=== PATIENT | female | born 1970 | race Caucasian/White ===

== ENCOUNTER 2016-08-01 12:20 | Emergency (ER) | payer OTHER ==
[2016-08-01 12:22] VITALS: BMI 37.8
[2016-08-01 12:32] VITALS: RESP 18; TEMP 98.7
[2016-08-01 14:18] LABS: BASO # 0.1 K/uL (0.0-0.2); BASO % 0.7 % (0.0-2.0); EOS # 0.2 K/uL (0.0-0.7); EOS % 1.8 % (0.0-4.0); HEMATOCRIT 41.8 % (34.0-47.0); LYMPH # 2.6 K/uL (1.0-4.3); LYMPH % 22.5 % (20.0-40.0); MEAN CELL VOLUME 84.7 fl (81.0-99.0); MEAN CORPUSCULAR HEMOGLOBIN 27.5 pg (27.0-31.0); MEAN CORPUSCULAR HGB CONC 32.5 g/dL (33.0-37.0); MEAN PLATELET VOLUME 6.9 fl (7.2-11.7); MONO # 0.5 K/uL (0.0-0.8); MONO % 4.4 % (0.0-10.0); NEUT # 8.2 K/uL (1.8-7.0); NEUT % 70.6 % (50.0-75.0); NRBC % 0.1 % (0.0-0.0); WHITE BLOOD COUNT 11.6 K/uL (4.8-10.8)
[2016-08-01 14:27] LABS: ALB/GLOB RATIO 1.2 (1.0-2.1); ALKALINE PHOSPHATASE 124 U/L (38-126); ALT/SGPT 43 U/L (9-52); AST/SGOT 18 U/L (14-36); BILIRUBIN,TOTAL 0.7 mg/dl (0.2-1.3); BLOOD UREA NITROGEN 14 mg/dl (7-17); CALCIUM 9.3 mg/dL (8.4-10.2); CARBON DIOXIDE 29 mmol/L (22-30); CHLORIDE 101 mmol/L (98-107); GFR AFRICAN-AMERICAN > 60; GLUCOSE,RANDOM 129 mg/dL (65-105); POTASSIUM 3.9 MMOL/L (3.6-5.0); SODIUM 139 mmol/l (132-148); TOTAL PROTEIN 7.2 G/DL (6.3-8.2)
--- NOTE | 2016-08-01 16:02 | US ---
Pelvic ultrasound History: Hematuria. Comparison: None. Technique: Trans abdominal and transvaginal sonogram of the pelvis. Findings: Patient is status post hysterectomy and right oophorectomy. No definite pelvic abnormality imaged. Left ovary measures 2.8 x 2.6 x 2.4 centimeter. Cyst versus prominent follicles known within the left ovary. Doppler flow noted. No significant free fluid in the cul-de-sac. Impression: No acute abnormality identified.
--- NOTE | 2016-08-01 16:04 | US ---
PROCEDURE: Ultrasound of the Kidneys HISTORY: hematuria, pelvic pain COMPARISON: None available. TECHNIQUE: Sonogram of the kidneys. FINDINGS: RIGHT KIDNEY: Measures: 12.4 x 6 x 5.4 cm. Normal in size, contour and echogenicity. Mild fullness of the renal collecting system. No radiopaque calculus. LEFT KIDNEY: Measures: 11.4 x 6.4 x 6.4 cm. Normal in size, contour and echogenicity. No stone, solid mass lesion or hydronephrosis visualized. OTHER FINDINGS: Bilateral ureteral jets seen. IMPRESSION: Mild fullness of the right renal collecting system. No radiopaque calculus identified. Bilateral ureteral jets seen.
[2016-08-01 16:10] LABS: RBC URINE 20 /hpf (0-3); URINE BACTERIA RARE (<OCC); URINE BILIRUBIN NEGATIVE (NEGATIVE); URINE BLOOD MODERATE (NEGATIVE); URINE CALCIUM OXALATE CRYSTALS FEW /hpf (<OCC); URINE COLOR YELLOW (YELLOW); URINE GLUCOSE (UA) NEG (Normal); URINE KETONE NEGATIVE (NEGATIVE); URINE LEUKOCYTE ESTERASE SMALL Leu/uL (Negative); URINE PROTEIN 30 mg/dL (NEGATIVE); URINE UROBILINOGEN 0.2-1.0 mg/dL (0.2-1.0); WBC URINE 6 /hpf (0-5)
--- NOTE | 2016-08-01 16:47 | ED PDOC ---
HPI: Female Pain Time Seen by Provider: 08/01/16 12:33 Chief Complaint (Nursing): Female Genitourinary Chief Complaint (Provider): Right sided pelvic pain, urinary urgency History Per: Patient History/Exam Limitations: no limitations Onset/Duration Of Symptoms: Days Current Symptoms Are (Timing): Still Present Additional Complaint(s): PT states she was diagnosed with UTI will in the hospital 2 weeks ago. Pt states she continued to have pelvic pain and right sided pain. Pt states she was seen by her TOOLS DEVELOPER who told her she had blood in her urine and UTI still present. TOOLS DEVELOPER gave her Keflex for UTI, did pap smear and vaginal cultures. PT states she also sent her for US and CT of the abdomen which she has not completed yet. Past Medical History Reviewed: Historical Data, Nursing Documentation, Vital Signs Vital Signs: Last Vital Signs Temp 98.7 F 08/01/16 12:27 Pulse 97 H 08/01/16 12:27 Resp 18 08/01/16 12:27 BP 145/71 08/01/16 12:27 Pulse Ox 99 08/01/16 12:27 - Medical History PMH: Arthritis (CLAUS. IN LEGS BILATERALLY), Asthma - Surgical History Surgical History: No Surg Hx - Family History Family History: States: Unknown Family Hx - Living Arrangements Living Arrangements: With Family - Social History Current smoker - smoking cessation education provided: No - Home Medications Home Medications: Ambulatory Orders Medication Instructions Recorded Budesonide/Formoterol Fumarate 1 dose IH PRN PRN 06/20/16 [Symbicort 160-4.5 Mcg Inhaler] Fluticasone Furoate [Arnuity 200 mcg IH PRN PRN 06/20/16 Ellipta] Steroid Cream For Arthritis 1 dose TP DAILY 06/20/16 Rosuvastatin Calcium [Crestor] 5 mg PO HS #30 tab 07/09/16 Cephalexin [Keflex] 500 mg PO BID #10 capsule 07/11/16 Ketorolac Tromethamine [Toradol] 10 mg PO Q8H #10 tab 08/01/16 Tamsulosin [Flomax] 0.4 mg PO DAILY #10 cap 08/01/16 - Allergies Allergies/Adverse Reactions: Allergies Allergy/AdvReac Type Severity Reaction Status Date / Time antibiotics AdvReac Intermediate "I ALWAYS Uncoded 06/20/16 11:00 GET A YEAST INECTION FOM ANY ANTIBIOTIC." Review of Systems ROS Statement: Except As Marked, All Systems Reviewed And Found Negative Genitourinary Female: Positive for: Frequency, Hematuria, Pelvic Pain Physical Exam - Reviewed Nursing Documentation Reviewed: Yes Vital Signs Reviewed: Yes - Physical Exam Appears: Positive for: Well, Non-toxic, No Acute Distress Head Exam: Positive for: ATRAUMATIC, NORMAL INSPECTION, NORMOCEPHALIC Skin: Positive for: Normal Color, Warm, DRY Eye Exam: Positive for: Normal appearance ENT: Positive for: Normal ENT Inspection Neck: Positive for: Normal, Painless ROM Cardiovascular/Chest: Positive for: Regular Rate, Rhythm Respiratory: Positive for: Normal Breath Sounds. Negative for: Accessory Muscle Use Gastrointestinal/Abdominal: Positive for: Bowel Sounds, Soft. Negative for: Tenderness Back: Positive for: Normal Inspection Extremity: Positive for: Normal ROM Neurologic/Psych: Positive for: Alert, Oriented - Laboratory Results Result Diagrams: 08/01/16 14:00 08/01/16 14:00 - ECG O2 Sat by Pulse Oximetry: 99 Pulse Ox Interpretation: Normal Medical Decision Making Medical Decision Making: (+) 5 cm stone, right sided renal Results discussed with patient and f/u with urologist. Disposition - Clinical Impression Clinical Impression: Kidney stone - Patient ED Disposition Is Patient to be Admitted: No Counseled Patient/Family Regarding: Diagnosis, Need For Followup, Rx Given - Disposition Referrals: Siddhartha Light Jr., MD [Staff Provider] - Disposition: Routine/Home Disposition Time: 16:46 Condition: GOOD Additional Instructions: Continue antibiotic you are currently taking (keflex). Follow-up with urologist. Prescriptions: Ketorolac Tromethamine [Toradol] 10 mg PO Q8H #10 tab Tamsulosin [Flomax] 0.4 mg PO DAILY #10 cap Instructions: Kidney Stones (ED)
--- NOTE | 2016-08-01 16:55 | CT ---
PROCEDURE: CT Abdomen and Pelvis without contrast. HISTORY: Pelvic pain, hematuria COMPARISON: None. TECHNIQUE: Contiguous axial images of the abdomen and pelvis. No oral or IV contrast given. Coronal and Sagittal reformats generated. Please note that due to lack of intravenous and oral contrast, evaluation of soft tissue structures and bowel is limited. Radiation dose: Total exam DLP = 1048.12 mGy-cm. This CT exam was performed using one or more of the following dose reduction techniques: Automated exposure control, adjustment of the mA and/or kV according to patient size, and/or use of iterative reconstruction technique. FINDINGS: LOWER THORAX: Unremarkable. LIVER: Unremarkable. No gross lesion or ductal dilatation. GALLBLADDER AND BILE DUCTS: Unremarkable. PANCREAS: Unremarkable. No mass. No ductal dilatation. SPLEEN: Unremarkable. No splenomegaly. ADRENALS: Unremarkable. KIDNEYS AND URETERS: Right perinephric stranding and mild to moderate hydronephrosis. 5 millimeter stone in the right ureteral vesicular junction. Underlying infection cannot be excluded. Punctate radiopaque calculus in the lower pole of the left kidney without evidence of hydronephrosis or hydroureter. BLADDER: Grossly unremarkable. REPRODUCTIVE: Please note that evaluation of gynecologic organs is not optimal on CT imaging. Calcifications seen in the left adnexa likely within the ovary. Sub centimeters cystic lesion in the left adnexa measuring 1.1 centimeter. This was seen in the recent ultrasound. APPENDIX: Unremarkable. BOWEL: Limited evaluation given lack of oral contrast. No obstruction. PERITONEUM: Unremarkable. No fluid collection. No free air. LYMPH NODES: Unremarkable. No enlarged lymph nodes. VASCULATURE: Unremarkable. No aortic aneurysm. BONES: No fracture or destructive lesion. OTHER FINDINGS: None. IMPRESSION: 5 millimeter radiopaque calculus in the right ureterovesicular junction with mild hydroureteronephrosis. Mild right-sided perinephric stranding. Underlying infection should be excluded clinically. Other findings as above. Discussed with CHRISTOPHER Brooks at approximately 4:45 p.m. on 08/01/2016.
[2016-08-01 17:05] VITALS: BP 118/68; PULSE 78; O2SAT 100
== END 2016-08-01 17:05 | disposition home or self-care (01) ==
LOC: H.ER 12:20
DX: N20.0 Calculus of kidney (principal); R10.2 Pelvic and perineal pain; R31.9 Hematuria, unspecified; J45.909 Unspecified asthma, uncomplicated

== ENCOUNTER 2017-08-12 22:07 | Emergency (ER) | payer OTHER ==
[2017-08-12 22:08] VITALS: BMI 39.3
[2017-08-12 22:16] VITALS: BP 123/77; PULSE 83; RESP 18; TEMP 98.2; O2SAT 100
--- NOTE | 2017-08-12 22:39 | ED PDOC ---
HPI: Skin/Bite Injury Time Seen by Provider: 08/12/17 22:32 Chief Complaint (Nursing): Fever Chief Complaint (Provider): Lyme Disease History Per: Patient History/Exam Limitations: no limitations Onset/Duration Of Symptoms: Days (60) Current Symptoms Are (Timing): Still Present Quality Of Symptoms: Painful Severity: Mild Additional Complaint(s): Pt presents to the ED with a mild headache after having been diagnosed with lyme disease on July 03 but receiving no treatment for the disease. Pt denies a stiff neck, menigeal signs but does complain of overall bodyaches, but she is uncertain whether this is related to her diagnosis of rheumatoid arthitis. Past Medical History Reviewed: Historical Data, Nursing Documentation, Vital Signs Vital Signs: Last Vital Signs Temp 98.2 F 08/12/17 22:13 Pulse 83 08/12/17 22:13 Resp 18 08/12/17 22:13 BP 123/77 08/12/17 22:13 Pulse Ox 100 08/13/17 00:55 - Medical History PMH: Anxiety, Arthritis (CLAUS. IN LEGS BILATERALLY; HANDS), Asthma, Bronchitis, Depression, Rheumatoid Arthritis, Sleep Apnea Denies: Colonic Polyps, Chronic Kidney Disease, Seizures, TIA - Surgical History Surgical History: Endoscopy - Family History Family History: States: Unknown Family Hx - Home Medications Home Medications: Ambulatory Orders Medication Instructions Recorded Budesonide/Formoterol Fumarate 2 puff IH PRN PRN 06/20/16 [Symbicort 160-4.5 Mcg Inhaler] Metoclopramide HCl [Reglan] 10 mg PO TID 01/17/17 Omeprazole 40 mg PO DAILY 01/17/17 Sucralfate [Carafate] 1 gm PO BID 01/17/17 Azithromycin 250 mg PO BID 06/20/17 Doxycycline Monohydrate 100 mg PO BID #42 tablet 08/13/17 - Allergies Allergies/Adverse Reactions: Allergies Allergy/AdvReac Type Severity Reaction Status Date / Time antibiotics AdvReac Intermediate "I ALWAYS Uncoded 06/20/16 11:00 GET A YEAST INECTION FOM ANY ANTIBIOTIC." Review of Systems ROS Statement: Except As Marked, All Systems Reviewed And Found Negative Review Of Systems: ROS cannot be obtained secondary to pt's inabilty to answer questions. Constitutional: Negative for: Fever, Chills, Sweats Eyes: Negative for: Pain ENT: Negative for: Ear Pain Cardiovascular: Negative for: Chest Pain Respiratory: Negative for: Cough Musculoskeletal: Negative for: Neck Pain, Shoulder Pain, Back Pain Skin: Negative for: Rash Neurological: Positive for: Headache Physical Exam - Reviewed Nursing Documentation Reviewed: Yes Vital Signs Reviewed: Yes - Physical Exam Appears: Positive for: Well, Non-toxic, No Acute Distress Head Exam: Positive for: ATRAUMATIC, NORMAL INSPECTION, NORMOCEPHALIC Skin: Positive for: Normal Color, Warm, Dry Eye Exam: Positive for: Normal appearance Neck: Positive for: Normal, Painless ROM, Supple. Negative for: Decreased ROM, Pain On Movement Of Neck Cardiovascular/Chest: Positive for: Regular Rate, Rhythm, Chest Non Tender. Negative for: Bradycardia, Tachycardia Respiratory: Positive for: Normal Breath Sounds. 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
[2017-08-12] MEDS ORDERED: Tdap Vaccine 0.5 ml Vial (10-64 yrs) IM ONE ×2 (22:42→22:58)
[2017-08-12] MEDS ORDERED: cefTRIAXone (Rocephin) 250 mg Inj IVPB STA (22:42)
[2017-08-12] MEDS ORDERED: DiphenhydrAMINE 50 mg/ml Inj IVP STA (22:42)
[2017-08-12] MEDS ORDERED: cefTRIAXone 2 GM in Sodium Chloride 0.9% 100 ML IVPB STA (22:46)
[2017-08-12] MEDS ORDERED: DiphenhydrAMINE 50 mg/ml Inj ONE (22:57)
[2017-08-12 23:24] LABS: BASO # 0.1 K/uL (0.0-0.2); BASO % 0.8 % (0.0-2.0); EOS # 0.3 K/uL (0.0-0.7); EOS % 2.6 % (0.0-4.0); HEMOGLOBIN 12.9 g/dL (12.0-16.0); LYMPH % 25.8 % (20.0-40.0); MEAN CELL VOLUME 82.2 fl (81.0-99.0); MEAN CORPUSCULAR HEMOGLOBIN 27.2 pg (27.0-31.0); MEAN CORPUSCULAR HGB CONC 33.1 g/dL (33.0-37.0); MEAN PLATELET VOLUME 7.5 fl (7.2-11.7); MONO # 0.6 K/uL (0.0-0.8); MONO % 5.2 % (0.0-10.0); NEUT # 7.6 K/uL (1.8-7.0); NEUT % 65.6 % (50.0-75.0); NRBC % 0.2 % (0.0-0.0); RBC 4.74 Mil/uL (3.80-5.20); RED CELL DISTRIBUTION WIDTH 13.8 % (11.5-14.5); WHITE BLOOD COUNT 11.6 K/uL (4.8-10.8)
[2017-08-12 23:33] LABS: ALB/GLOB RATIO 1.1 (1.0-2.1); ALBUMIN 3.9 g/dL (3.5-5.0); ALT/SGPT 33 U/L (9-52); AST/SGOT 24 U/L (14-36); BLOOD UREA NITROGEN 17 mg/dl (7-17); CALCIUM 8.6 mg/dL (8.4-10.2); GFR AFRICAN-AMERICAN > 60; GFR NON-AFRICAN AMERICAN > 60
[2017-08-13 00:07] LABS: SQUAMOUS EPITHIAL 4 /hpf (0-5); URINE BACTERIA OCC (<OCC); URINE BILIRUBIN NEGATIVE (NEGATIVE); URINE BLOOD NEGATIVE (NEGATIVE); URINE CLARITY CLOUDY (Clear); URINE COLOR YELLOW (YELLOW); URINE GLUCOSE (UA) NEG (Normal); URINE LEUKOCYTE ESTERASE TRACE Leu/uL (Negative); URINE PROTEIN NEGATIVE (NEGATIVE)
== END 2017-08-13 00:58 | disposition home or self-care (01) ==
LOC: H.ER 22:07
DX: A69.20 Lyme disease, unspecified (principal); Z86.59 Personal history of other mental and behavioral disorders; J45.909 Unspecified asthma, uncomplicated; M06.9 Rheumatoid arthritis, unspecified; Z23 Encounter for immunization
CPT/HCPCS: 80053; 81003; 81025; 85025; 86618; 90471; 90715; 96374; 99283; J0696; J1200

== ENCOUNTER 2017-11-02 07:58 | Emergency (ER) | payer MEDICAID, OTHER ==
[2017-11-02 08:06] VITALS: BP 132/84; PULSE 78; RESP 22; O2SAT 97; BMI 40.6
[2017-11-02 08:27] VITALS: TEMP 97
[2017-11-02] MEDS ORDERED: Sodium Chloride 0.9% 1,000 ML IV STA (08:37)
[2017-11-02 08:54] LABS: BASO # 0.1 K/uL (0.0-0.2); BASO % 1.1 % (0.0-2.0); EOS # 0.3 K/uL (0.0-0.7); HEMOGLOBIN 13.4 g/dL (12.0-16.0); LYMPH # 2.8 K/uL (1.0-4.3); LYMPH % 31.9 % (20.0-40.0); MEAN CELL VOLUME 82.1 fl (81.0-99.0); MEAN CORPUSCULAR HEMOGLOBIN 27.1 pg (27.0-31.0); MEAN PLATELET VOLUME 7.4 fl (7.2-11.7); MONO # 0.5 K/uL (0.0-0.8); MONO % 5.9 % (0.0-10.0); NEUT # 5.1 K/uL (1.8-7.0); NEUT % 58.1 % (50.0-75.0); NRBC % 0.1 % (0.0-0.0); RBC 4.95 Mil/uL (3.80-5.20); RED CELL DISTRIBUTION WIDTH 13.6 % (11.5-14.5); WHITE BLOOD COUNT 8.8 K/uL (4.8-10.8)
[2017-11-02 09:17] LABS: ALB/GLOB RATIO 1.3 (1.0-2.1); ALBUMIN 4.2 g/dL (3.5-5.0); ALT/SGPT 41 U/L (9-52); AST/SGOT 27 U/L (14-36); BLOOD UREA NITROGEN 16 mg/dl (7-17); CALCIUM 9.1 mg/dL (8.4-10.2); GFR NON-AFRICAN AMERICAN > 60
--- NOTE | 2017-11-02 09:32 | ED PDOC ---
HPI: General Adult Time Seen by Provider: 11/02/17 08:11 Chief Complaint (Nursing): Weakness/Neurological Deficit Chief Complaint (Provider): headache, weakness History Per: Patient History/Exam Limitations: no limitations Onset/Duration Of Symptoms: Days (x2 weeks) Current Symptoms Are (Timing): Still Present Additional Complaint(s): Julieta Butts is a 46 year old female, with a past medical history of Lyme disease, Lupus, asthma and questionable blood pressure issues, who presents to the emergency department for evaluation of migraine headaches onset for months associated with nausea and an episode of vomiting last night. She also reports a fever, Tmax of 102, one time last night. Patient was diagnosed with Lyme disease and Lupus, she got full treatment which she finished. Patient was supposed to see Dr. Clements yesterday because her medications were not helping but couldn't make it. She has been getting migraines since finishing treatment which describes as frontal and same as usual migraines. She tried motrin but with no improvement. Patient reports back spasms, tingling and burning sensation in legs but no numbness in arms or face, ongoing for x2 weeks. She also reports generalized weakness and cough with her asthma but denies any recent travel, hormone treatment, diarrhea, abdominal pain, urinary symptoms, chills, congestion, runny nose, chest pain, shortness of breath, neck pain, dizziness or other medical complaints. PMD: Jaden Hodges Past Medical History Reviewed: Historical Data, Nursing Documentation, Vital Signs Vital Signs: Last Vital Signs Temp 97.0 F L 11/02/17 08:13 Pulse 78 11/02/17 08:13 Resp 22 11/02/17 08:13 BP 132/84 11/02/17 08:13 Pulse Ox 97 11/02/17 10:55 - Medical History PMH: Anxiety, Arthritis (CLAUS. IN LEGS BILATERALLY; HANDS), Asthma, Bronchitis, Depression, HTN, Rheumatoid Arthritis, Sleep Apnea Denies: Colonic Polyps, Chronic Kidney Disease, Seizures, TIA Other PMH: Lupus, Lyme disease - Surgical History Surgical History: Endoscopy - Family History Family History: States: Unknown Family Hx - Social History Current smoker - smoking cessation education provided: No Alcohol: Social Drugs: Denies - Home Medications Home Medications: Ambulatory Orders Medication Instructions Recorded RX: Budesonide/Formoterol Fumarate 2 puff IH PRN PRN 06/20/16 [Symbicort 160-4.5 Mcg Inhaler] Metoclopramide HCl [Reglan] 10 mg PO TID 01/17/17 RX: Omeprazole 40 mg PO DAILY 01/17/17 Sucralfate [Carafate] 1 gm PO BID 01/17/17 RX: Azithromycin 250 mg PO BID 06/20/17 RX: Doxycycline Monohydrate 100 mg PO BID #42 tablet 08/13/17 RX: Doxycycline Monohydrate 100 mg PO BID 14 Days tablet 11/02/17 - Allergies Allergies/Adverse Reactions: Allergies Allergy/AdvReac Type Severity Reaction Status Date / Time antibiotics AdvReac Intermediate "I ALWAYS Uncoded 06/20/16 11:00 GET A YEAST INECTION FOM ANY ANTIBIOTIC." Review of Systems ROS Statement: Except As Marked, All Systems Reviewed And Found Negative Constitutional: Positive for: Fever, Weakness (generalized). Negative for: Chills ENT: Negative for: Nose Congestion Cardiovascular: Negative for: Chest Pain Respiratory: Positive for: Cough. Negative for: Shortness of Breath Gastrointestinal: Positive for: Nausea, Vomiting. Negative for: Abdominal Pain , Diarrhea Genitourinary Female: Negative for: Dysuria Musculoskeletal: Positive for: Back Pain. Negative for: Neck Pain Neurological: Positive for: Headache, Other (tingling and burning sensation in legs). Negative for: Weakness, Numbness, Dizziness Physical Exam - Reviewed Nursing Documentation Reviewed: Yes Vital Signs Reviewed: Yes - Physical Exam Appears: Positive for: No Acute Distress Head Exam: Positive for: ATRAUMATIC, NORMAL INSPECTION, NORMOCEPHALIC Skin: Positive for: Normal Color, Warm, Dry Eye Exam: Positive for: Normal appearance, EOMI, PERRL ENT: Positive for: Normal ENT Inspection Neck: Positive for: Painless ROM, Supple Cardiovascular/Chest: Positive for: Regular Rate, Rhythm. Negative for: Murmur Respiratory: Positive for: Normal Breath Sounds. Negative for: Respiratory Distress Gastrointestinal/Abdominal: Positive for: Normal Exam, Soft. Negative for: Tenderness, Guarding, Rebound Back: Positive for: Normal Inspection, Other (Straight leg test negative). Negative for: L CVA Tenderness, R CVA Tenderness, Vertebral Tenderness Extremity: Positive for: Normal ROM (upper and lower extremities). 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 Negative for: Motor/Sensory Deficits, Aphasia, Facial Droop - Laboratory Results Result Diagrams: 11/02/17 08:41 11/02/17 08:41 Interpretation Of Abn Labs: 2.2 phos - ECG ECG: Positive for: Interpreted By Me, Viewed By Me ECG Rhythm: Positive for: Normal QRS, Normal ST Segment, Sinus Rhythm O2 Sat by Pulse Oximetry: 97 (RA) Pulse Ox Interpretation: Normal - CT Scan/US ct Other Rad Studies (CT/US): Read By Radiologist Other Rad Interpretation: 4.8 mm probable meningioma versus dural based calcification - Progress ED Course And Treament: 1033: Stable. Spoke with Dr. German who is covering Dr. Clements. Wants pt. to be started on doxy for 2 weeks and fu with him. AAOx3. Ambulated with no issues. Tolerated po. Medical Decision Making Medical Decision Making: Time: 08:11 Initial Impression: migraine headache Initial Plan: --Head w/o contrast [CT] --EKG --CMP --Magnesium --Phosphorus --Troponin I --Urine --Reglan 10 mg IV --Sodium Chloride 1,000 ml IV 1,000 mls/hr --Reevaluation 10:[address] FINDINGS: HEMORRHAGE: No intracranial hemorrhage. BRAIN: No mass effect or edema. 4.8 mm probable meningioma versus dural based calcification involving the right frontal convexity (series 4, image 29). Lara- white matter differentiation appears intact. Please note that MRI with diffusion imaging is more sensitive in the detection of acute ischemic event. VENTRICLES: No hydrocephalus. CALVARIUM: Unremarkable. PARANASAL SINUSES: Unremarkable as visualized. No significant inflammatory changes. MASTOID AIR CELLS: Unremarkable as visualized. No inflammatory changes. OTHER FINDINGS: None. IMPRESSION: 4.8 mm probable meningioma versus dural based calcification involving the right frontal convexity. No acute intracranial pathology identified. ----- Scribe Attestation: Documented by Jamie Fu, acting as a scribe for Terrell Chatterjee MD. Provider Scribe Attestation: All medical record entries made by the Scribe were at my direction and personally dictated by me. I have reviewed the chart and agree that the record accurately reflects my personal performance of the history, physical exam, medical decision making, and the department course for this patient. I have also personally directed, reviewed, and agree with the discharge instructions and disposition. Disposition - Clinical Impression Clinical Impression: Weakness, Headache, Hypophosphatemia - Patient ED Disposition Is Patient to be Admitted: No Counseled Patient/Family Regarding: Studies Performed, Diagnosis, Need For Followup, Rx Given - Disposition Referrals: [facility] [Outside] - 11/03/17 Disposition: Routine/Home Disposition Time: 10:35 Condition: STABLE Additional Instructions: Return if not better 3 days. Prescriptions: RX: Doxycycline Monohydrate 100 mg PO BID 14 Days tablet Instructions: Headache, Adult, Weakness (ED) Forms: [employer] ([place]), [facility] ED School/Work Excuse
--- NOTE | 2017-11-02 10:12 | CT ---
Date of service: 11/02/2017 PROCEDURE: CT HEAD WITHOUT CONTRAST. HISTORY: headache COMPARISON: None available. TECHNIQUE: Axial computed tomography images were obtained through the head/brain without intravenous contrast. Radiation dose: Total exam DLP = 845.69 mGy-cm. This CT exam was performed using one or more of the following dose reduction techniques: Automated exposure control, adjustment of the mA and/or kV according to patient size, and/or use of iterative reconstruction technique. FINDINGS: HEMORRHAGE: No intracranial hemorrhage. BRAIN: No mass effect or edema. 4.8 mm probable meningioma versus dural based calcification involving the right frontal convexity (series 4, image 29). Lara-white matter differentiation appears intact. Please note that MRI with diffusion imaging is more sensitive in the detection of acute ischemic event. VENTRICLES: No hydrocephalus. CALVARIUM: Unremarkable. PARANASAL SINUSES: Unremarkable as visualized. No significant inflammatory changes. MASTOID AIR CELLS: Unremarkable as visualized. No inflammatory changes. OTHER FINDINGS: None. IMPRESSION: 4.8 mm probable meningioma versus dural based calcification involving the right frontal convexity. No acute intracranial pathology identified.
[2017-11-02] MEDS ORDERED: Potassium & Sodium Phosphate PO STA (10:32)
--- NOTE | 2017-11-02 11:15 | CARD ---
APPROVED REPORT Date of service: 11/02/2017 EKG Measurement Heart [id number] <Conclusion> Normal sinus rhythm prolonged QT abnormal ECG
== END 2017-11-02 11:18 | disposition home or self-care (01) ==
LOC: H.ER 07:58
DX: M62.81 Muscle weakness (generalized) (principal); E83.31 Familial hypophosphatemia; F41.9 Anxiety disorder, unspecified; I10 Essential (primary) hypertension; M06.9 Rheumatoid arthritis, unspecified; M32.9 Systemic lupus erythematosus, unspecified
CPT/HCPCS: 70450; 80053; 83735; 84100; 84484; 85025; 93005; 96374; 99281; J2765; J7030